=== PATIENT | female | born 1995 | race Caucasian/White ===

== ENCOUNTER 2018-01-26 03:14 | Emergency (ER) | payer BC, SELFPAY ==
[2018-01-26 03:18] VITALS: BP 133/81; PULSE 76; RESP 20; TEMP 36.7; O2SAT 100; BMI 26.0
--- NOTE | 2018-01-26 03:36 | CT_ITS ---
CT abdomen pelvis wo con CLINICAL INDICATION: Right upper quadrant pain ITS.REASON: ABD PAIN ORDERING PHYSICIAN: Keith Dan MD PATIENT AGE: 23 years COMPARISON: None TECHNIQUE: Axial images obtained with sagittal and coronal reformats. PROCEDURE: Oral Contrast: None IV Contrast: None . FINDINGS: No acute finding in the lower chest. No focal liver lesion. Spleen, adrenal glands, pancreas, kidneys, ureters, and urinary bladder have an unremarkable appearance. Gallbladder is contracted. No radio opaque stones. Scattered small lymph nodes are present in the mesentery's nonspecific. Unremarkable appendix. No evidence of intestinal obstruction or free air. There is a mild amount of free fluid in the pelvis. No pelvic mass or focal inflammatory change evident. No acute bony anomalies. IMPRESSION: 1. Mild amount of free fluid in the pelvis of indeterminate etiology and clinical significance. 2. Scattered small lymph nodes in the mesentery's nonspecific. 3. No evidence of obstructing ureteral calculus or appendicitis.
[2018-01-26 04:02] LABS: Basophils % 0.3 % (0.1-2.0); Eosinophils # 0.2 K/mm3 (0.0-0.4); Eosinophils % 1.5 % (0.1-12.0); Hematocrit 36.9 % (37.0-47.0); Hemoglobin 12.1 g/dL (12.2-16.2); Lymphocytes # 2.9 K/mm3 (0.7-4.5); Mean Corpuscular HGB Conc 32.6 g/dL (31.8-35.4); Mean Corpuscular Hemoglobin 28.6 pg (27.0-31.2); Mean Corpuscular Volume 87.8 fl (81-99); Mean Platelet Volume 8.5 fl (7.4-10.4); Monocytes # 0.4 K/mm3 (0.1-1.0); Monocytes % 4.2 % (1.7-9.3); Neutrophils # 6.1 K/mm3 (1.8-7.8); Neutrophils % 63.8 % (37.0-80.0); Platelet Count 212 K/mm3 (142-424); Red Blood Count 4.21 M/mm3 (4.20-5.40); Red Cell Distribution Width 12.5 % (11.5-17.5); White Blood Count 9.6 K/mm3 (4.8-10.8)
[2018-01-26 04:13] LABS: HCG Qualitative, Serum Negative (Negative)
[2018-01-26 04:19] LABS: Alanine Aminotransferase 22 U/L (12-78); Albumin Level 3.9 gm/dL (3.4-5.0); Albumin/Globulin Ratio 1.2 (1.1-1.8); Alkaline Phosphatase 45 U/L (46-116); Amylase 46 U/L (25-125); Anion Gap 10.7 mEq/L (5-15); Aspartate Amino Transferase 8 U/L (15-37); Bilirubin,Total 0.3 mg/dL (0.2-1.0); Blood Urea Nitrogen 13 mg/dL (7-18); Calcium 8.7 mg/dL (8.5-10.1); Carbon Dioxide 26 mmol/L (21.0-32.0); Chloride 107 mmol/L (98-107); Creatinine Clearance Estimated 159 mL/min (0-300); Creatinine,Serum 0.73 mg/dL (0.55-1.02); Estimated Glomerular Filt Rate 98 ml/min (>60); GFR (African American) 119 ML/MIN (>60); Globulin 3.3 gm/dl (1.3-3.2); Glucose 120 mg/dL (74-106); Lipase 155 u/L (73-393); Potassium 3.7 mmoL/L (3.5-5.1); Sodium 140 mmol/L (136-145); Total Protein,Serum 7.2 gm/dL (6.4-8.2)
--- NOTE | 2018-01-26 04:26 | PC.NURSE ---
PT TO RADIOLOGY AT THIS TIME
--- NOTE | 2018-01-26 04:40 | [facility].EDNVD ---
ED Disposition Clinical Impression: Abdominal pain Qualifiers: Abdominal location: right upper quadrant Qualified Code(s): R10.11 - Right upper quadrant pain Disposition: Home, Self-Care Condition on Discharge: Good Instructions: DI for Acute Abdomen Additional Instructions: see dr romero for follow up Referrals: Merissa Romero MD [Primary Care Provider] - - Critical Care Critical Care Time: No Attestation: On 01/26/18, the high probability of a clinically significant, sudden or life threatening deterioration of the following system(s) required my full and direct attention, intervention and personal management. The time I documented below is in addition to time spent performing reported procedures but includes the following listed in this critical care notation. Medical Decision Making - Medical Records Medical records reviewed: Yes: I reviewed the patient's medical records. Vital Signs: 01/26/18 03:18 Temperature 98.1 F Temperature Source Oral Pulse Rate [Right Brachial] 76 Respiratory Rate 20 Blood Pressure [Right Arm] 133/81 Blood Pressure Mean [Right Arm] 98 Blood Pressure Source [Right Arm] Automatic Cuff Blood Pressure Position [Right Arm] Sitting 02 Sat by Pulse Oximetry 100 Oxygen Delivery Method Room Air - Lab Data Lab results reviewed: Yes: I reviewed the patient's lab results. Lab Results 01/26/18 03:40: WBC 9.6, RBC 4.21, Hgb 12.1 L, Hct 36.9 L, MCV 87.8, MCH 28.6, MCHC 32.6, RDW 12.5, Plt Count 212, MPV 8.5, Neut % (Auto) 63.8, Lymph % (Auto) 30.0, [place] % (Auto) 4.2, Eos % (Auto) 1.5, Baso % (Auto) 0.3, Neut # (Auto) 6.1, Lymph # (Auto) 2.9, [place] # (Auto) 0.4, Eos # (Auto) 0.2, Baso # (Auto) 0.0 01/26/18 03:40: Sodium 140, Potassium 3.7, Chloride 107, Carbon Dioxide 26, Anion Gap 10.7, BUN 13, Creatinine 0.73, Estimated Creat Clear 159, Estimated GFR 98, Est GFR ( Amer) 119, Glucose 120 H, Calcium 8.7, Total Bilirubin 0.3, AST 8 L, ALT 22, Alkaline Phosphatase 45 L, Total Protein 7.2, Albumin 3.9, Globulin 3.3 H, Albumin/Globulin Ratio 1.2, Amylase 46, Lipase 155 01/26/18 03:40: Serum HCG, Qual Negative Result diagrams: 01/26/18 03:40 01/26/18 03:40 Orders (Tests/Meds): ED MEDICATIONS Discontinued Medications Generic Name Dose Route Start Last Admin Trade Name Freq PRN Reason Stop Dose Admin Sodium Chloride 500 mls @ 999 mls/hr 01/26/18 03:45 01/26/18 03:37 Sod Chlor 0.9% 1000ml Bag IV 01/26/18 04:15 999 mls/hr .Q31M SHIRLENE Administration Ketorolac Tromethamine 30 mg 01/26/18 03:36 01/26/18 03:37 Toradol 30mg/Ml Vial IV 01/26/18 03:37 30 mg ONCE ONE Administration Ondansetron HCl 4 mg 01/26/18 03:36 01/26/18 03:37 Zofran 4mg/2ml Vial IV 01/26/18 03:37 4 mg ONCE ONE Administration ORDERS Category Date Time Status CT abdomen pelvis wo con Stat Cat Scan 01/26/18 03:36 Taken Urinalysis and Microscopic Stat Lab 01/26/18 03:36 Ordered - CT Data CT Scan: Abdomen, Pelvis Time Received: 06:[address] Reviewed: Yes: I have viewed the radiologist's interpretation Preliminary Findings: Normal/NAD - Ernie Inquiry Pt receiving controlled substance: No Nausea/Vomiting/Diarrhea HPI - General Chief complaint: Abdominal Pain Stated complaint: Upper Abdominal Pain Time Seen by Provider: 01/26/18 03:30 Mode of Arrival: Ambulatory Source of Information: Patient, Medical Record Limitations: No Limitations Description of Symptoms (Recalled from ER Triage Doc. by RN): REPORTS ABD PAIN THAT STARTED ABOUT 3 HOURS AGO. REPORTS THAT SHE HAS SLIGHT NAUSEA WITH THIS. REPORTS NO CHANGE IN DIET, OR ANYTHING ELSE RECENTLY. LOW CHANCE OF BEING . PT RATING PAIN AT 8/10 AT THIS TIME, GAURDING THE RIGHT SIDE OF ABDOMEN. - History of Present Illness HPI Narrative: acute rt upper abd pain this am MD complaint: nausea, abdominal pain Onset (ago): hour(s) Associated Abdominal Pain: Yes Location of pain: RUQ Severity: moderat
[2018-01-26 06:27] VITALS: BP 108/59; PULSE 76; RESP 16; TEMP 36.7; O2SAT 100
== END 2018-01-26 06:27 | disposition home or self-care (01) ==
PROVIDERS: Emergency Provider Emergency Medicine; Family Provider Family Medicine; PCP Family Medicine
DX: R10.11 Right upper quadrant pain (principal)
CPT/HCPCS: 74176; 80053; 82150; 83690; 84703; 85025; 93041; 96365; 96374; 96375; 99282; J2405